=== PATIENT | male | born 1985 | race African-American/Black ===

== ENCOUNTER 2019-02-13 03:33 | Emergency (ER) | payer OTHER ==
[~2019-02-13] VITALS: Ht 175.3 cm; Wt 86.2 kg
[2019-02-13] MEDS ORDERED: IBUPROFEN 800 MG TABLET. PO ONE (04:04)
[2019-02-13] MEDS ORDERED: IBUPROFEN 400 MG TABLET. PO ONE (04:15)
[2019-02-13] MEDS ORDERED: ACETAMINOPHEN 500 MG TABLET PO ONE (04:15)
--- NOTE | 2019-02-13 04:31 | PHYS DOC ---
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 The patient has also felt like he has a fever though he has not measured a temperature at home. His temp is 101.6 in the ED. It is painful for him to swallow both liquids and solids. He is unsure of sick contacts. He denies shortness of breath, vomiting, diarrhea. Review of Systems Review of Systems Constitutional: Fever[] Eyes: Denies change in visual acuity, redness, or eye pain [] HENT: Sore throat [] Respiratory: Denies cough or shortness of breath [] Cardiovascular: No additional information not addressed in HPI [] GI: Denies abdominal pain, nausea, vomiting, bloody stools or diarrhea [] : Denies dysuria or hematuria [] Musculoskeletal: Denies back pain or joint pain [] Integument: Denies rash or skin lesions [] Neurologic: Denies headache, focal weakness or sensory changes [] Endocrine: Denies polyuria or polydipsia [] All other systems were reviewed and found to be within normal limits, except as documented in this note. Current Medications Current Medications Current Medications Medications (Trade) Dose Ordered Sig/Raphael Start Time Stop Time Status Last Admin Dose Admin Acetaminophen (Tylenol) 1,000 mg 1X ONCE 02/13/19 04:15 02/13/19 04:16 DC 02/13/19 04:13 1,000 MG Ibuprofen (Motrin) 800 mg STK-MED ONCE 02/13/19 04:04 02/13/19 04:04 DC Allergies Allergies Allergies Coded Allergies Type Severity Reaction Last Updated Verified No Known Drug Allergies 02/13/19 No Physical Exam Physical Exam Constitutional: Well developed, well nourished, no acute distress, non-toxic appearance. [] HENT: Normocephalic, atraumatic, bilateral external ears normal, oropharynx erythematous without exudates, nose normal. [] Eyes: PERRLA, EOMI, conjunctiva normal, no discharge. [] Neck: Normal range of motion, no tenderness, supple, no stridor. [] Cardiovascular:Heart rate regular rhythm, no murmur [] Lungs & Thorax: Bilateral breath sounds clear to auscultation [] Abdomen: Bowel sounds normal, soft, no tenderness, no masses, no pulsatile masses. [] Skin: Warm, dry, no erythema, no rash. [] Back: No tenderness, no CVA tenderness. [] Extremities: No tenderness, no cyanosis, no clubbing, ROM intact, no edema. [] Neurologic: Alert and oriented X 3, normal motor function, normal sensory function, no focal deficits noted. [] Psychologic: Affect normal, judgement normal, mood normal. [] Current Patient Data Vital Signs Vital Signs Date Time Temp Pulse Resp B/P (MAP) Pulse Ox O2 Delivery O2 Flow Rate FiO2 02/13/19 03:35 101.6 83 18 100 Room Air EKG EKG [] Radiology/Procedures Radiology/Procedures [] Course & Med Decision Making Course & Med Decision Making Pertinent Labs and Imaging studies reviewed. (See chart for details) The patient's rapid strep is negative. His influenza is also negative. Given his fever, history, and erythema on exam, I will go ahead and treat him with penicillin Vk for 10 days. We will give the first dose in the ED. He is stable for discharge at this time. [] Dragon Disclaimer Dragon Disclaimer This electronic medical record was generated, in whole or in part, using a voice recognition dictation system. Departure Departure: Impression: Primary Impression: Strep pharyngitis Disposition: 01 HOME, SELF-CARE Condition: STABLE Referrals: PCP,NO (PCP) Patient Instructions: Strep Throat, [id number] Scripts Penicillin V Potassium (PENICILLIN V POTASSIUM) 500 Mg Tablet 1 TAB PO BID for strep throat, #20 TAB Prov: ANGELITA DENTON DO 02/13/19 ANGELITA DENTON DO Feb 13, 2019 04:31
[2019-02-13 04:54] LABS: INFLUENZA A PATIENT NEGATIVE (NEGATIVE); INFLUENZA B PATIENT NEGATIVE (NEGATIVE)
[2019-02-13] MEDS ORDERED: PENICILLIN V K 250 MG TABLET. PO ONE (05:00)
[2019-02-13] MEDS ORDERED: PENI500T PO (05:00)
[2019-02-13] MEDS ORDERED: ACETAMINOPHEN 325 MG TABLET PO ONE (05:00)
[2019-02-13 05:10] VITALS: BP 129/90
[2019-02-14] MEDS ORDERED: GUAI120L35 PO (12:13)
== END 2019-02-13 05:10 | disposition home or self-care (01) ==
LOC: ER 03:33
DX: J02.0 Streptococcal pharyngitis (principal); B95.0 Streptococcus, group A, as the cause of diseases classified elsewhere
CPT/HCPCS: 87070; 87804; 87880; 99284

== ENCOUNTER 2019-02-14 11:50 | Emergency (ER) | payer OTHER ==
[~2019-02-14] VITALS: Ht 175.3 cm; Wt 86.2 kg
[~2019-02-14 11:50] MED LIST: PENI500T PO
[2019-02-14] MEDS ORDERED: GUAI120L35 PO (12:13)
--- NOTE | 2019-02-14 12:16 | PHYS DOC ---
Past History Past Medical History: Other Additional Past Medical Histor: tested positive TB(confirmed not active at time of testing) Alcohol Use: None Drug Use: None Adult General Chief Complaint Chief Complaint: GENERALIZED BODY ACHES HPI HPI Patient is a 33-year-old male who presents with complaint of productive cough, fever, body aches and chills. Patient was seen a couple of days ago for the same complaint and was prescribed a 10 day course of antibiotics. Patient did not fill the antibiotics until yesterday and took his first dose last night. He denies any chest pain or shortness of breath.[] Review of Systems Review of Systems Constitutional: Complains of fever and chills [] Respiratory: Complains of cough without shortness of breath [] Cardiovascular: No additional information not addressed in HPI [] Integument: Denies rash or skin lesions [] Neurologic: Complains of headache without focal weakness or sensory changes [] Allergies Allergies Allergies Coded Allergies Type Severity Reaction Last Updated Verified No Known Drug Allergies 02/13/19 No Physical Exam Physical Exam Constitutional: Well developed, well nourished, no acute distress, non-toxic appearance. [] Neck: Normal range of motion, no tenderness, supple, no stridor. [] Cardiovascular: Regular rate and rhythm[] Lungs & Thorax: Bilateral breath sounds clear to auscultation [] Skin: Warm, dry, no erythema, no rash. [] Extremities: No tenderness, no cyanosis, no clubbing, ROM intact, no edema. [] EKG EKG [] Radiology/Procedures Radiology/Procedures [] Course & Med Decision Making Course & Med Decision Making Pertinent Labs and Imaging studies reviewed. (See chart for details) [] Dragon Disclaimer Dragon Disclaimer This electronic medical record was generated, in whole or in part, using a voice recognition dictation system. Departure Departure: Impression: Primary Impression: Bronchitis Disposition: 01 HOME, SELF-CARE Condition: STABLE Referrals: JC LOPEZ MD (PCP) Patient Instructions: Bronchitis, Form - Excuse from Work, School, or Physical Activity Scripts Guaifenesin/Codeine Phosphate (Codeine-Guaifen 10-100 mg/5 ml) 120 Ml Liquid 5 ML PO PRN Q6HRS PRN for cough and congestion MDD 20 Milliliter(s) for 6 Days, #120 ML 0 Refills Prov: KAREN LINDA Jr. DO 02/14/19 KAREN LINDA Jr., DO Feb 14, 2019 12:16
[2019-02-14 12:21] VITALS: BP 135/51
== END 2019-02-14 12:21 | disposition home or self-care (01) ==
LOC: ER 11:50
DX: J40 Bronchitis, not specified as acute or chronic (principal); R51 Headache
CPT/HCPCS: 99283

== ENCOUNTER 2019-06-16 10:07 | Emergency (ER) | payer OTHER ==
[~2019-06-16] VITALS: Ht 167.6 cm; Wt 81.0 kg
[~2019-06-16 10:07] MED LIST changes: +GUAI120L35 PO
[2019-06-16] MEDS ORDERED: ASPIRIN 325 MG TABLET PO ONE (10:30)
[2019-06-16] MEDS ORDERED: FAMOTIDINE 20 MG/2 ML VIAL IVP ONE (10:30)
[2019-06-16] MEDS ORDERED: IV NORMAL SALINE 1,000ML 1,000 ML IV ONE (10:30)
[2019-06-16] MEDS ORDERED: KETOROLAC 15 MG/ML VIAL. IVP ONE (10:30)
[2019-06-16] MEDS ORDERED: FAMO-63 PO (10:36)
--- NOTE | 2019-06-16 10:36 | PHYS DOC ---
Past History Past Medical History: High Cholesterol Additional Past Medical Histor: tested positive TB(confirmed not active at time of testing) Past Surgical History: No Surgical History Smoking: Non-smoker Alcohol Use: None Drug Use: None General Adult EDM: Chief Complaint: CHEST PAIN HPI: HPI: 33-year-old male presents with 3 day history of substernal chest pain. Reports has been constant throughout. Reports pain does wax and wane in intensity. Denies any other associated symptoms. Reports took some ibuprofen last night with minimal improvement. Denies leg swelling or calf tenderness. Denies trauma. Cardiac risk factors of high cholesterol. Denies leg swelling or calf tenderness. Denies pleuritic pain. Denies family history or history of PE/DVT. Patient reports that had a similar experience back in [place] they cannot remember ultimately what the diagnosis was. Review of Systems: Review of Systems: Constitutional: Denies fever or chills Eyes: Denies redness or eye pain HENT: Denies nasal congestion or sore throat Respiratory: Denies cough or shortness of breath Cardiovascular: Reports chest pain; denies palpitations GI: Denies abdominal pain, nausea, or vomiting : Denies dysuria or hematuria Musculoskeletal: Denies back pain or joint pain Integument: Denies rash or skin lesions Neurologic: Denies headache, focal weakness or sensory changes Complete systems were reviewed and found to be within normal limits, except as documented in this note. Heart Score: HEART Score for Chest Pain: HEART Score for Chest Pain Response (Comments) Value History Slighlty/Non-Suspicious 0 ECG Normal 0 Age < 45 0 Risk Factors 1 or 2 Risk Factors 1 Troponin < Normal Limit 0 Total 1 Risk Factors: Risk Factors: DM, Current or recent (<one month) smoker, HTN, HLP, family history of CAD, obesity. Risk Scores: Score 0 - 3: 2.5% MACE over next 6 weeks - Discharge Home Score 4 - 6: 20.3% MACE over next 6 weeks - Admit for Clinical Observation Score 7 - 10: 72.7% MACE over next 6 weeks - Early Invasive Strategies Current Medications: Current Meds: Current Medications Medications (Trade) Dose Ordered Sig/Raphael Start Time Stop Time Status Last Admin Dose Admin Aspirin (Melissa Aspirin) 325 mg 1X ONCE 06/16/19 10:30 06/16/19 10:31 Famotidine (Pepcid Vial) 20 mg 1X ONCE 06/16/19 10:30 06/16/19 10:31 Ketorolac Tromethamine (Toradol 15mg Vial) 15 mg 1X ONCE 06/16/19 10:30 06/16/19 10:31 UNV Sodium Chloride 1,000 ml @ 1,000 mls/hr 1X ONCE 06/16/19 10:30 06/16/19 11:29 Allergies: Allergies: Allergies Coded Allergies Type Severity Reaction Last Updated Verified No Known Drug Allergies 02/13/19 No Physical Exam: PE: Constitutional: Well developed, well nourished, no acute distress, non-toxic appearance HENT: Normocephalic, atraumatic, oropharynx moist Eyes: Conjunctiva normal, no discharge Neck: Normal range of motion, no tenderness, supple Cardiovascular: Heart rate normal, regular rhythm Lungs & Thorax: Bilateral breath sounds clear to auscultation, no wheezing, mild chest discomfort on palpation Abdomen: Soft, no tenderness Skin: Warm, dry, no erythema, no rash Back: No tenderness, no CVA tenderness Extremities: No tenderness, ROM intact, no edema Neurologic: Alert and oriented X 3, no focal deficits noted Psychologic: Affect normal, judgment normal Current Patient Data: Vital Signs: Vital Signs Date Time Temp Pulse Resp B/P (MAP) Pulse Ox O2 Delivery O2 Flow Rate FiO2 06/16/19 10:16 98.3 68 18 120/76 (91) 99 Room Air EKG: EKG: @1023 NSR at 71bpm, NO ST elevation, QRS 76ms, QT/QTc 404/439ms Radiology/Procedures: Radiology/Procedures: PROCEDURE: PORTABLE CHEST 1V PORTABLE CHEST 1V History: Chest pain Comparison: None. Findings: Single view of the chest is submitted. There is no infiltrate, pneumothorax, or effusion. The pericardial cardiac silhouette is within normal limits in size. Impression: 1. There is no radiographic evidence of acute cardiopulmonary disease. Electronically signed by: Yury Huston MD (06/16/2019 10:51 AM) [id number] Course & Med Decision Making: Course & Med Decision Making Pertinent Labs and Imaging studies reviewed. (See chart for details) Patient with low cardiac risk factors presents with report of substernal chest pain and 3 days. EKG stable. Labs obtained and posted to chart. Troponin within normal limits. Chest x-ray without acute process. Symptomatic treatment provided. HEART score 1. Patient stable for discharge with outpatient follow-up with PCP. Discussed findings and plan with patient, who acknowledges understanding and agreement. Ramakrishna Disclaimer: Ramakrishna Disclaimer: This electronic medical record was generated, in whole or in part, using a voice recognition dictation system. Departure Departure: Impression: Primary Impression: Chest pain Qualified Codes: R07.9 - Chest pain, unspecified Disposition: HOME, SELF-CARE Condition: STABLE Referrals: JC LOPEZ MD (PCP) Patient Instructions: Chest Pain (Nonspecific), [id number] Scripts Famotidine (PEPCID) 20 Mg Tablet 1 TAB PO BID for Gastritis, #20 TAB Prov: CLAIRE SHORT DO 06/16/19 CLAIRE SHORT DO Jun 16, 2019 10:36
[2019-06-16 10:47] LABS: BASO % 0 % (0-3); EOS # 0.1 x10^3/uL (0.0-0.7); EOS % 3 % (0-3); HEMATOCRIT 43.2 % (39.0-53.0); HEMOGLOBIN 13.8 g/dL (13.0-17.5); LYMPH % 59 % (24-48); MEAN CORPUSCULAR HEMOGLOBIN 26 pg (25-35); MEAN CORPUSCULAR HGB CONC 32 g/dL (31-37); MEAN CORPUSCULAR VOLUME 82 fL (79-100); MONO # 0.2 x10^3/uL (0.0-1.1); MONO % 7 % (0-9); NEUT # 1.1 x10^3uL (1.8-7.7); NEUT % 31 % (31-73); PLATELET COUNT 130 x10^3/uL (140-400); RED BLOOD COUNT 5.27 x10^6/uL (4.30-5.70); RED CELL DISTRIBUTION WIDTH 15.2 % (11.5-14.5); WHITE BLOOD COUNT 3.4 x10^3/uL (4.0-11.0)
--- NOTE | 2019-06-16 10:51 | EKG ---
[address] [address] Test Date: 2019-06-16 Test Time: 10:23:05 Pat Name: LEVY LR Department: Room: Gender: M [employer] Selector: : 1985 Requested By: CLAIRE SHORT Order Number: [id number] Reading MD: Mio Adler Measurements Intervals [place] Rate: 71 P: 47 UT: 174 QRS: 44 QRSD: 76 T: 27 QT: 404 QTc: 439 Interpretive Statements SINUS RHYTHM NORMAL ECG RI6.02 No previous ECG available for comparison Electronically Signed On 06-16-2019 19:28:20 CDT by Mio Adler
--- NOTE | 2019-06-16 10:53 | RAD ---
PORTABLE CHEST 1V History: Chest pain Comparison: None. Findings: Single view of the chest is submitted. There is no infiltrate, pneumothorax, or effusion. The pericardial cardiac silhouette is within normal limits in size. Impression: 1. There is no radiographic evidence of acute cardiopulmonary disease. Electronically signed by: Yury Huston MD (06/16/2019 10:51 AM) [id number]
[2019-06-16 10:55] LABS: CALCIUM 9.4 mg/dL (8.5-10.1); GFR 104.1; POTASSIUM 3.8 mmol/L (3.5-5.1)
[2019-06-16 11:11] LABS: ALBUMIN 4.2 g/dL (3.4-5.0); ALBUMIN/GLOBULIN RATIO 1.2 (1.0-1.7); TOTAL BILIRUBIN 0.2 mg/dL (0.2-1.0); TOTAL PROTEIN 7.8 g/dL (6.4-8.2)
[2019-06-16 11:18] VITALS: BP 142/84
== END 2019-06-16 11:26 | disposition home or self-care (01) ==
LOC: ER 10:07
DX: R07.2 Precordial pain (principal); E78.00 Pure hypercholesterolemia, unspecified
CPT/HCPCS: 36415; 71045; 80053; 82553; 83690; 83735; 84484; 85025; 93005; 96374; 96375; 99285; J1885; J3490; J7030